=== PATIENT | male | born 1995 | race Caucasian/White ===

== ENCOUNTER → 2023-01-11 | Outpatient (CLI) | payer OTHER, SELFPAY ==
--- NOTE | 2023-01-11 11:45 | RAD_ITS ---
INDICATION: RIGHT ANKLE FRACTURE EXAMINATION/TECHNIQUE: X-RAY - RIGHT XR Ankle 2 Views 2 VIEWS COMPARISON: None. FINDINGS: SOFT TISSUES: No soft tissue swelling or gas. No radiopaque foreign body. BONES/JOINTS: No acute fracture or subluxation.. Normal alignment. Preservation of the joint space.. No sclerotic or destructive changes observed. RAD/Ankle 2 Views IMPRESSION: X-ray of the ankle within normal limits. Electronically Signed: Gwen Hooper, at 17:18 EDT ,
== END | disposition home or self-care (01) ==
LOC: RAD 11:37
PROVIDERS: Referring Provider Chiropractor; Visit Provider Chiropractor
DX: M84.471A Pathological fracture, right ankle, initial encounter for fracture (principal)
CPT/HCPCS: 73600